=== PATIENT | male | born 1990 | race Caucasian/White ===

== ENCOUNTER 2016-12-07 00:07 | Emergency (ER) | payer SELFPAY ==
--- NOTE | 2016-12-07 05:57 | ER ---
ADMIT: 12/07/2016 RM/LOC: ER [facility] MR#: [id number] [id number] ROSSY [address]ON [address] [place] [address] Emergency Room Report SEX: M AGE: 26 : 1990 DATE: 12/07/2016 The patient is a 26-year-old male, complaining of low back pain without radiation that began this afternoon. No prior history of back injury. Exam remarkable for nontoxic, afebrile, acutely uncomfortable male with no CVA tenderness. Positive straight leg bilaterally at 30 degrees. Otherwise, intact and symmetric reflex. The patient given Toradol, Dilaudid, and Reglan with improvement. Home with naproxen 500 b.i.d. #60, hydrocodone 5/325 #20 plus 6. Heat followed by ice and follow up Dr. Tucker Carter as needed. Esvin Worthy MD/ jennifer JOB #: [id number] CC: Esvin Worthy MD, Attending Physician Tucker Carter MD, Family Physician Tucker Carter MD
== END 2016-12-07 01:05 | disposition home or self-care (01) ==
LOC: ER 00:07
DX: M54.5 Low back pain (principal)